=== PATIENT | female | born 1935 | race Caucasian/White ===

== ENCOUNTER 2016-06-23 13:11 | Inpatient (IN) | payer MEDICARE, BC, MEDICAID ==
[2016-06-23] MEDS ORDERED: Sodium Chloride 0.9% 10 ML Syringe FLUSH PRN ×2 (13:16→17:56)
--- NOTE | 2016-06-23 13:23 | EDM.PDOC ---
ED HISTORY OF PRESENT ILLNESS - General Stated Complaint: [facility] Time Seen by Provider: 06/23/16 13:15 Source: Reports: Patient, EMS, RN notes reviewed History Limitations: Reports: Physical impairment (Hearing and dementia) - History of Present Illness INITIAL COMMENTS - FREE TEXT/NARRATIVE: Difficult to obtain any history from her she does admit to being short of breath , EMS services were called to the memory care unit for difficulty breathing. When found by EMS services O2 saturation was 78% she did respond to albuterol nebulizer treatment and oxygen with O2 saturation in 90%. Due to the physical limitation could not obtain review of systems and HPI is limited, daughter called she is a full code - Related Data Allergies/ADRs: Allergies Allergy/AdvReac Type Severity Reaction Status Date / Time acetaminophen Allergy Hives Verified 06/23/16 14:00 cinnamon [Cinnamon] Allergy Hives Verified 06/23/16 14:00 codeine Allergy Hives Verified 06/23/16 14:00 iodine Allergy Hives Verified 06/23/16 14:00 meperidine HCl [From Demerol] Allergy Confusion Verified 06/23/16 14:00 morphine Allergy Confusion Verified 06/23/16 14:00 piroxicam [From Feldene] Allergy Hives Verified 06/23/16 14:00 prednisone Allergy Confusion Verified 06/23/16 14:00 vit-c Allergy Hives Uncoded 02/12/14 18:49 Home Meds: Home Meds Clopidogrel [Plavix] 75 mg PO DAILY 02/08/14 [History] Diltiazem HCl [Diltiazem 24Hr ER] 120 mg PO DAILY 02/08/14 [History] Ibuprofen [Advil Liqui-Gels] 200 mg PO Q4H PRN 02/08/14 [History] LORazepam [Ativan] 0.5 mg PO BID 02/08/14 [History] Levothyroxine [Synthroid] 88 mcg PO DAILY 02/08/14 [History] Nitroglycerin 0.4 mg SL ASDIRECTED 02/08/14 [History] risperiDONE [RisperiDAL ODT] 0.5 mg PO BID 02/08/14 [History] Ergocalciferol (Vitamin D2) [Vitamin D2] 1 tab PO DAILY 06/23/16 [History] LORazepam 1 tab PO Q6H 06/23/16 [History] LORazepam [Ativan] 1 tab PO BEDTIME 06/23/16 [History] Mirtazapine [Remeron] 0.5 tab PO BEDTIME 06/23/16 [History] Sennosides/Docusate Sodium [Sennalax-S] 1 tab PO ASDIRECTED 06/23/16 [History] Past Medical History Cardiovascular History: Reports: CAD, Heart Failure, Hypertension, Stents Respiratory History: Reports: SOB, Other (see below) (Aspiration) Gastrointestinal History: Reports: GERD Neurological History: Reports: Alzheimers disease Psychiatric History: Reports: Bipolar Endocrine/Metabolic History: Reports: Diabetes, type II, Hypothyroidism - Past Surgical History Cardiovascular Surgical History: Reports: Coronary artery stent GI Surgical History: Reports: Hernia, abdominal Musculoskeletal Surgical History: Reports: ORIF Social & Family History - Tobacco Use Smoking Status *Q: Never Smoker - Alcohol Use Days Per Week of Alcohol Use: 0 - Recreational Drug Use Recreational Drug Use: No ED ROS GENERAL - Review of Systems Review Of Systems: Unable To Obtain ED EXAM, GENERAL - Physical Exam Exam: See Below Free Text/Narrative:: General: Elderly female in moderate respiratory distress audible wheezing, alert and oriented x one HEENT: head is atraumatic normocephalic, eyes pupils equal round reactive to light, sclera clear no conjunctivitis appreciated. Ears blocked by Juan bilaterally. Nose no septal deviation, nares are clear, no blood present. Mouth mucosa is moist and pink no dry with white patches in the posterior pharynx and tongue, tongue is midline uvula is midline, . Neck: Supple no thyromegaly no tracheal deviation. Nodes: Cervical nodes subclavicular nodes nontender no palpable lymphadenopathy noted. Lungs: clear to auscultation bilaterally with symmetrical respirations, no adventitious noise appreciated. CV: Tachycardic rate and rhythm S1 and S2 appreciated no murmurs rubs or gallops noted. Abdomen: Soft, nontender, no palpable masses or organomegaly appreciated, no distention no guarding bowel sounds are present, . Neuro: Cranial nerves II through XII grossly intact Skin: Warm and dry, intact Extremities: No lower extremity edema appreciated, pedal pulse is +2. Course - Vital Signs Last Recorded V/S: Last Vital Signs Temp 96.2 F 06/23/16 13:22 Pulse 78 06/23/16 15:09 Resp 24 H 06/23/16 15:09 BP 198/88 H 06/23/16 15:09 Pulse Ox 94 L 06/23/16 15:09 - Orders/Labs/Meds Orders: Active Orders 24 hr Category Date Time Status Cardiac Monitoring [RC] .As Directed Care 06/23/16 13:16 Active EKG Documentation Completion [RC] ASDIRECTED Care 06/23/16 13:17 Active Oxygen Therapy [RC] ASDIRECTED Care 06/23/16 13:16 Active Peripheral IV Care [RC] . DIRECTED Care 06/23/16 13:16 Active Pulse Oximetry [RC] ASDIRECTED Care 06/23/16 13:16 Active Sodium Chloride 0.9% [Saline Flush] Med 06/23/16 13:16 Active 10 ml FLUSH ASDIRECTED PRN Peripheral IV Insertion Adult [OM.PC] Stat Oth 06/23/16 13:16 Ordered Saline Lock Insert [OM.PC] Stat Oth 06/23/16 13:16 Ordered EKG 12 Lead [EK] Stat Ther 06/23/16 13:17 Ordered Medication Orders Sodium Chloride (Saline Flush) 10 ml FLUSH ASDIRECTED PRN PRN Reason: Keep Vein Open Last Admin: 06/23/16 13:42 Dose: 10 ml Labs: Laboratory Tests 06/23/16 06/23/16 06/23/16 Range/Units 13:17 13:17 13:17 WBC 5.4 (4.5-11.0) K/uL RBC 4.05 (3.30-5.50) M/uL Hgb 13.1 (12.0-15.0) g/dL Hct 38.5 (36.0-48.0) % MCV 95 (80-98) fL MCH 32 H (27-31) pg MCHC 34 (32-36) % Plt Count 158 (150-400) K/uL Neut % (Auto) 66 (36-66) % Lymph % (Auto) 22 L (24-44) % Franklin % (Auto) 10 H (2-6) % Eos % (Auto) 2 (2-4) % Baso % (Auto) 1 (0-1) % PT 10.7 (9.5-12.0) sec INR 1.01 (0.80-1.20) APTT 24.5 L (27.0-36.0) sec Puncture Site ABG pH (7.350-7.450) ABG pCO2 (35.0-42.0) mmHg ABG pO2 (75.0-100.0) mmHg ABG HCO3 (22.0-26.0) mmol/L ABG Total CO2 (21.0-25.0) mmol/L ABG O2 Saturation (95.0-98.0) % ABG O2 Content (15.0-23.0) %vol ABG Base Excess mm/L ABG Hemoglobin (12.0-16.0) g/dL ABG Oxyhemoglobin % ABG Carboxyhemoglobin (0.0-1.6) % ABG Methemoglobin % Shay Test O2 Delivery Device Oxygen Flow Rate L Sodium 142 (140-148) mmol/L Potassium 4.1 (3.6-5.2) mmol/L Chloride 105 (100-108) mmol/L Carbon Dioxide 29 (21-32) mmol/L Anion Gap 8.0 (5.0-14.0) mmol/L BUN 14 (7-18) mg/dL Creatinine 1.0 (0.6-1.0) mg/dL Est Cr Clr Drug Dosing 30.62 mL/min Estimated GFR (MDRD) 53 L (>60) Glucose 193 H (74-106) mg/dL Lactic Acid (0.4-2.0) mmol/L Calcium 8.8 (8.5-10.1) mg/dL Total Bilirubin 0.4 (0.2-1.0) mg/dL AST 17 (15-37) U/L ALT 20 (12-78) U/L Alkaline Phosphatase 72 (46-116) U/L CK-MB (CK-2) 0.6 (0-3.6) mg/mL Troponin I 0.023 (0.000-0.056) ng/mL Hdh-O-Vpaofgvvqfv Pept 186 (5-450) pg/mL Total Protein 6.6 (6.4-8.2) g/dL Albumin 3.5 (3.4-5.0) g/dL Globulin 3.1 (2.3-3.5) g/dL Albumin/Globulin Ratio 1.1 L (1.2-2.2) Lipase 159 (73-393) U/L Urine Color Urine Appearance Urine pH (4.5-8.0) Ur Specific Maupin (1.008-1.030) Urine Protein (NEGATIVE) mg/dL Urine Glucose (UA) (NEGATIVE) mg/dL Urine Ketones (NEGATIVE) mg/dL Urine Occult Blood (NEGATIVE) Urine Nitrite (NEGATIVE) Urine Bilirubin (NEGATIVE) Urine Urobilinogen (NORMAL) mg/dL Ur Leukocyte Esterase (NEGATIVE) Urine RBC (0-5) Urine WBC (0-5) Ur Epithelial Cells Amorphous Sediment Urine Bacteria Urine Mucus 06/23/16 06/23/16 06/23/16 Range/Units 13:17 13:42 15:09 WBC (4.5-11.0) K/uL RBC (3.30-5.50) M/uL Hgb (12.0-15.0) g/dL Hct (36.0-48.0) % MCV (80-98) fL MCH (27-31) pg MCHC (32-36) % Plt Count (150-400) K/uL Neut % (Auto) (36-66) % Lymph % (Auto) (24-44) % Franklin % (Auto) (2-6) % Eos % (Auto) (2-4) % Baso % (Auto) (0-1) % PT (9.5-12.0) sec INR (0.80-1.20) APTT (27.0-36.0) sec Puncture Site Rt radial ABG pH 7.399 (7.350-7.450) ABG pCO2 45.0 H (35.0-42.0) mmHg ABG pO2 67.1 L (75.0-100.0) mmHg ABG HCO3 27.2 H (22.0-26.0) mmol/L ABG Total CO2 24.4 (21.0-25.0) mmol/L ABG O2 Saturation 92.7 L (95.0-98.0) % ABG O2 Content 16.7 (15.0-23.0) %vol ABG Base Excess 2.5 mm/L ABG Hemoglobin 13.0 (12.0-16.0) g/dL ABG Oxyhemoglobin 91.5 % ABG Carboxyhemoglobin 0.8 (0.0-1.6) % ABG Methemoglobin 0.5 % Shay Test Passed O2 Delivery Device Nasal cannula Oxygen Flow Rate 4 L Sodium (140-148) mmol/L Potassium (3.6-5.2) mmol/L Chloride (100-108) mmol/L Carbon Dioxide (21-32) mmol/L Anion Gap (5.0-14.0) mmol/L BUN (7-18) mg/dL Creatinine (0.6-1.0) mg/dL Est Cr Clr Drug Dosing mL/min Estimated GFR (MDRD) (>60) Glucose (74-106) mg/dL Lactic Acid 1.4 (0.4-2.0) mmol/L Calcium (8.5-10.1) mg/dL Total Bilirubin (0.2-1.0) mg/dL AST (15-37) U/L ALT (12-78) U/L Alkaline Phosphatase (46-116) U/L CK-MB (CK-2) (0-3.6) mg/mL Troponin I (0.000-0.056) ng/mL Jvs-M-Yxtcyckdavy Pept (5-450) pg/mL Total Protein (6.4-8.2) g/dL Albumin (3.4-5.0) g/dL Globulin (2.3-3.5) g/dL Albumin/Globulin Ratio (1.2-2.2) Lipase (73-393) U/L Urine Color Yellow Urine Appearance Clear Urine pH 7.0 (4.5-8.0) Ur Specific [place] 1.010 (1.008-1.030) Urine Protein Negative (NEGATIVE) mg/dL Urine Glucose (UA) Normal (NEGATIVE) mg/dL Urine Ketones Negative (NEGATIVE) mg/dL Urine Occult Blood Negative (NEGATIVE) Urine Nitrite Negative (NEGATIVE) Urine Bilirubin Negative (NEGATIVE) Urine Urobilinogen Normal (NORMAL) mg/dL Ur Leukocyte Esterase Negative (NEGATIVE) Urine RBC 0-5 (0-5) Urine WBC Not seen (0-5) Ur Epithelial Cells Not seen Amorphous Sediment Not seen Urine Bacteria Not seen Urine Mucus Not seen Meds: Medications Generic Name Dose Route Start Last Admin Trade Name Freq PRN Reason Stop Dose Admin Sodium Chloride 10 ml 06/23/16 13:16 06/23/16 13:42 Saline Flush FLUSH 10 ml ASDIRECTED PRN Administration Keep Vein Open Departure - Departure Time of Disposition: 15:54 Disposition: Admitted As Inpatient 64 Condition: poor Clinical Impression: SOB (shortness of breath), Hypoxemia - My Orders Last 24 Hours: My Active Orders 06/23/16 13:16 Cardiac Monitoring [RC] .As Directed Oxygen Therapy [RC] ASDIRECTED Peripheral IV Care [RC] . DIRECTED Pulse Oximetry [RC] ASDIRECTED Sodium Chloride 0.9% [Saline Flush] 10 ml FLUSH ASDIRECTED PRN Peripheral IV Insertion Adult [OM.PC] Stat Saline Lock Insert [OM.PC] Stat 06/23/16 13:17 EKG Documentation Completion [RC] ASDIRECTED EKG 12 Lead [EK] Stat - Assessment/Plan Last 24 Hours: My Active Orders 06/23/16 13:16 Cardiac Monitoring [RC] .As Directed Oxygen Therapy [RC] ASDIRECTED Peripheral IV Care [RC] . DIRECTED Pulse Oximetry [RC] ASDIRECTED Sodium Chloride 0.9% [Saline Flush] 10 ml FLUSH ASDIRECTED PRN Peripheral IV Insertion Adult [OM.PC] Stat Saline Lock Insert [OM.PC] Stat 06/23/16 13:17 EKG Documentation Completion [RC] ASDIRECTED EKG 12 Lead [EK] Stat Plan: Assessment Acuity = acute Site and laterality = hypoxia complicated patient with known Alzheimer's disease and history of aspiration pneumonia Etiology = suspicious for aspiration pneumonia Manifestations = hypoxia Location of injury = home Lab values = CBC within normal limits, INR within normal limits, pH 7.39 PCO2 40 5P O2 7.1 bicarbonate 27.2 CMP within normal limits urinalysis normal BNP normal limits 186 troponin normal at 0.023, EKG demonstrates normal sinus rhythm , chest x-ray shows no acute process Plan Call discussed case with hospitalist on-call he agreed to come to the ED and evaluate the patient for admission This note was dictated using [employer] voice recognition software please call with any questions.
--- NOTE | 2016-06-23 13:44 | CR ---
Chest 1V Frontal HISTORY: Chest Pain COMPARISON: 02/12/2014 FINDINGS: Lungs appear clear and normally aerated. There is no pneumothorax or pleural fluid. Heart size is wi thin normal limits. Atherosclerotic aorta is redemonstrated. Pulmonary vasculature is not engorged. There is soft tissue prominence in the right paratracheal region. This may represent atherosclerotic , tortuous innominate artery. Thyroid goiter could be considered. This is more prominent on today's exam compared with the prior study. Bony structures are diffusely osteopenic. Plate and screw fixati on proximal right humerus is stable. There is no obvious rib fracture or other acute rib abnormality . IMPRESSION: 1. No acute chest cardiopulmonary disease is identified. 2. Generalized osteopenia. Diffuse degenerative changes thoracic spine. 3. Stable old proximal right humeral fracture with plate and screw fixation. 4. Soft tissue fullness right paratracheal region is more prominent than on the exam of 02/12/2014. This could represent atherosclerotic, tortuous innominate artery or thyroid goiter. Other etiologies such as malignancy or lymphoma are felt to be less likely but not entirely excluded. If further wor kup is desired clinically, CT scan of the chest could be helpful to further evaluate.
[2016-06-23] MEDS ORDERED: LORazepam 2 MG/ML MDV IVPUSH ONE (16:50)
--- NOTE | 2016-06-23 17:23 | PCM.HP ---
H&P History of Present Illness - General Date of Service: 06/23/16 Admit Problem/Dx: Admission Diagnosis/Problem Admission Diagnosis/Problem Hypoxia Source of Information: Family, Old records, Provider, RN notes reviewed History Limitations: Reports: Altered mental status (Advanced dementia) - History of Present Illness Initial Comments - Free Text/Narative: This patient is an 81-year-old woman, who was admitted through the emergency room with hypoxia, thought secondary to aspiration. She has a known history of advanced dementia, over the past several months has become progressively more weak and confused. During that period of time is also began to have difficulty with recurrent episodes of aspiration, manifested as coughing and choking while eating. Her diet has been changed to a soft mechanical diet which does seem to have helped somewhat. Today at the [facility] was noted to be more short of breath and on evaluation found to be hypoxic with an oxygen saturation of 85% on room air. On evaluation in the emergency department she again was found to be hypoxic with a similar oxygen saturation. On initial assessment her respiratory rate was significantly elevated in the 30s. She's received supplemental oxygen in her respiratory status does seem to be stabilized over the past few hours in the emergency department. Chest x-ray showed no obvious infiltrate or evidence of pneumonia, white blood cell count is normal. This x- ray also documented a chronic mass in the chest it has enlarged slightly over the past 3 years. I discussed this with the patient's daughter and she does not want to consider further aggressive evaluation or intervention. Daughter would like the patient treated for pneumonia but no other aggressive interventions other than supplemental oxygen and IV fluids. A she herself is unable to contribute to the history because of advanced dementia. - Related Data Allergies/Adverse Reactions: Allergies Allergy/AdvReac Type Severity Reaction Status Date / Time acetaminophen Allergy Hives Verified 06/23/16 14:00 ascorbic acid Allergy Hives Verified 06/23/16 17:10 cinnamon [Cinnamon] Allergy Hives Verified 06/23/16 14:00 codeine Allergy Hives Verified 06/23/16 14:00 iodine Allergy Hives Verified 06/23/16 14:00 meperidine HCl [From Demerol] Allergy Confusion Verified 06/23/16 14:00 morphine Allergy Confusion Verified 06/23/16 14:00 piroxicam [From Feldene] Allergy Hives Verified 06/23/16 14:00 prednisone Allergy Confusion Verified 06/23/16 14:00 Home Medications: Home Meds Clopidogrel [Plavix] 75 mg PO DAILY 02/08/14 [History] Diltiazem HCl [Diltiazem 24Hr ER] 120 mg PO DAILY 02/08/14 [History] Ibuprofen [Advil Liqui-Gels] 200 mg PO Q4H PRN 02/08/14 [History] LORazepam [Ativan] 0.5 mg PO BID 02/08/14 [History] Levothyroxine [Synthroid] 88 mcg PO DAILY 02/08/14 [History] Nitroglycerin 0.4 mg SL ASDIRECTED 02/08/14 [History] risperiDONE [RisperiDAL ODT] 0.5 mg PO BID 02/08/14 [History] Ergocalciferol (Vitamin D2) [Vitamin D2] 1 tab PO DAILY 06/23/16 [History] LORazepam 1 tab PO Q6H 06/23/16 [History] LORazepam [Ativan] 1 tab PO BEDTIME 06/23/16 [History] Mirtazapine [Remeron] 0.5 tab PO BEDTIME 06/23/16 [History] Sennosides/Docusate Sodium [Sennalax-S] 1 tab PO ASDIRECTED 06/23/16 [History] Past Medical History Cardiovascular History: Reports: CAD, Heart Failure, Hypertension, Stents Respiratory History: Reports: SOB, Other (see below) (Aspiration) Gastrointestinal History: Reports: GERD Neurological History: Reports: Alzheimers disease Psychiatric History: Reports: Bipolar Endocrine/Metabolic History: Reports: Diabetes, type II, Hypothyroidism - Past Surgical History Cardiovascular Surgical History: Reports: Coronary artery stent GI Surgical History: Reports: Hernia, abdominal Musculoskeletal Surgical History: Reports: ORIF Social & Family History - Tobacco Use Smoking Status *Q: Never Smoker - Alcohol Use Days Per Week of Alcohol Use: 0 - Recreational Drug Use Recreational Drug Use: No H&P Review of Systems - Review of Systems: Review Of Systems: Unable To Obtain General: Reports: ROS unobtainable (Advanced dementia) Exam - Exam Exam: See Below - Vital Signs Vital Signs: Last Vital Signs Temp 96.2 F 06/23/16 13:22 Pulse 66 06/23/16 16:16 Resp 18 06/23/16 16:16 BP 200/87 H 04/04/17 16:16 Pulse Ox 95 06/23/16 16:16 Weight: 110 lb 7.225 oz - Exam Quality Assessment: supplemental oxygen, DVT prophylaxis General: alert, cooperative, mild distress HEENT: Conjunctiva clear, EOMI, Nares patent, Normal nasal septum, Posterior pharynx clear, Pupils equal, Pupils reactive. No: Hearing intact, Mucosa moist & pink Neck: supple, trachea midline, +2 carotid pulse wo bruit Lungs: Normal respiratory effort, Decreased breath sounds. No: Crackles, Rales , Rhonchi, Rub, Stridor, Wheezing Cardiovascular: regular rate, regular rhythm, normal S1, normal S2. No: irregular rhythm, bradycardia, tachycardia, systolic murmur, diastolic murmur Abdomen: normal bowel sounds, soft Back Exam: normal inspection, full range of motion, NT Extremities: normal inspection. No: clubbing Skin: warm, dry, intact Neuro Extensive - Mental Status: alert, disorientation to person, disorientation to place, disorientation to time, memory loss-remote events, memory loss-recent events. No: oriented x3, normal cognition, memory intact - Patient Data Lab Results last 24 hrs: Laboratory Results - last 24 hr 06/23/16 06/23/16 06/23/16 Range/Units 13:17 13:17 13:17 WBC 5.4 (4.5-11.0) K/uL RBC 4.05 (3.30-5.50) M/uL Hgb 13.1 (12.0-15.0) g/dL Hct 38.5 (36.0-48.0) % MCV 95 (80-98) fL MCH 32 H (27-31) pg MCHC 34 (32-36) % Plt Count 158 (150-400) K/uL Neut % (Auto) 66 (36-66) % Lymph % (Auto) 22 L (24-44) % [place] % (Auto) 10 H (2-6) % Eos % (Auto) 2 (2-4) % Baso % (Auto) 1 (0-1) % PT 10.7 (9.5-12.0) sec INR 1.01 (0.80-1.20) APTT 24.5 L (27.0-36.0) sec Puncture Site ABG pH (7.350-7.450) ABG pCO2 (35.0-42.0) mmHg ABG pO2 (75.0-100.0) mmHg ABG HCO3 (22.0-26.0) mmol/L ABG Total CO2 (21.0-25.0) mmol/L ABG O2 Saturation (95.0-98.0) % ABG O2 Content (15.0-23.0) %vol ABG Base Excess mm/L ABG Hemoglobin (12.0-16.0) g/dL ABG Oxyhemoglobin % ABG Carboxyhemoglobin (0.0-1.6) % ABG Methemoglobin % Shay Test O2 Delivery Device Oxygen Flow Rate L Sodium 142 (140-148) mmol/L Potassium 4.1 (3.6-5.2) mmol/L Chloride 105 (100-108) mmol/L Carbon Dioxide 29 (21-32) mmol/L Anion Gap 8.0 (5.0-14.0) mmol/L BUN 14 (7-18) mg/dL Creatinine 1.0 (0.6-1.0) mg/dL Est Cr Clr Drug Dosing 30.62 mL/min Estimated GFR (MDRD) 53 L (>60) Glucose 193 H (74-106) mg/dL Lactic Acid (0.4-2.0) mmol/L Calcium 8.8 (8.5-10.1) mg/dL Total Bilirubin 0.4 (0.2-1.0) mg/dL AST 17 (15-37) U/L ALT 20 (12-78) U/L Alkaline Phosphatase 72 (46-116) U/L CK-MB (CK-2) 0.6 (0-3.6) mg/mL Troponin I 0.023 (0.000-0.056) ng/mL Iur-T-Yckedipymgr Pept 186 (5-450) pg/mL Total Protein 6.6 (6.4-8.2) g/dL Albumin 3.5 (3.4-5.0) g/dL Globulin 3.1 (2.3-3.5) g/dL Albumin/Globulin Ratio 1.1 L (1.2-2.2) Lipase 159 (73-393) U/L Urine Color Urine Appearance Urine pH (4.5-8.0) Ur Specific [place] (1.008-1.030) Urine Protein (NEGATIVE) mg/dL Urine Glucose (UA) (NEGATIVE) mg/dL Urine Ketones (NEGATIVE) mg/dL Urine Occult Blood (NEGATIVE) Urine Nitrite (NEGATIVE) Urine Bilirubin (NEGATIVE) Urine Urobilinogen (NORMAL) mg/dL Ur Leukocyte Esterase (NEGATIVE) Urine RBC (0-5) Urine WBC (0-5) Ur Epithelial Cells Amorphous Sediment Urine Bacteria Urine Mucus 06/23/16 06/23/16 06/23/16 Range/Units 13:17 13:42 15:09 WBC (4.5-11.0) K/uL RBC (3.30-5.50) M/uL Hgb (12.0-15.0) g/dL Hct (36.0-48.0) % MCV (80-98) fL MCH (27-31) pg MCHC (32-36) % Plt Count (150-400) K/uL Neut % (Auto) (36-66) % Lymph % (Auto) (24-44) % [place] % (Auto) (2-6) % Eos % (Auto) (2-4) % Baso % (Auto) (0-1) % PT (9.5-12.0) sec INR (0.80-1.20) APTT (27.0-36.0) sec Puncture Site Rt radial ABG pH 7.399 (7.350-7.450) ABG pCO2 45.0 H (35.0-42.0) mmHg ABG pO2 67.1 L (75.0-100.0) mmHg ABG HCO3 27.2 H (22.0-26.0) mmol/L ABG Total CO2 24.4 (21.0-25.0) mmol/L ABG O2 Saturation 92.7 L (95.0-98.0) % ABG O2 Content 16.7 (15.0-23.0) %vol ABG Base Excess 2.5 mm/L ABG Hemoglobin 13.0 (12.0-16.0) g/dL ABG Oxyhemoglobin 91.5 % ABG Carboxyhemoglobin 0.8 (0.0-1.6) % ABG Methemoglobin 0.5 % Shay Test Passed O2 Delivery Device Nasal cannula Oxygen Flow Rate 4 L Sodium (140-148) mmol/L Potassium (3.6-5.2) mmol/L Chloride (100-108) mmol/L Carbon Dioxide (21-32) mmol/L Anion Gap (5.0-14.0) mmol/L BUN (7-18) mg/dL Creatinine (0.6-1.0) mg/dL Est Cr Clr Drug Dosing mL/min Estimated GFR (MDRD) (>60) Glucose (74-106) mg/dL Lactic Acid 1.4 (0.4-2.0) mmol/L Calcium (8.5-10.1) mg/dL Total Bilirubin (0.2-1.0) mg/dL AST (15-37) U/L ALT (12-78) U/L Alkaline Phosphatase (46-116) U/L CK-MB (CK-2) (0-3.6) mg/mL Troponin I (0.000-0.056) ng/mL Cbk-L-Vzygaiwnmtn Pept (5-450) pg/mL Total Protein (6.4-8.2) g/dL Albumin (3.4-5.0) g/dL Globulin (2.3-3.5) g/dL Albumin/Globulin Ratio (1.2-2.2) Lipase (73-393) U/L Urine Color Yellow Urine Appearance Clear Urine pH 7.0 (4.5-8.0) Ur Specific [place] 1.010 (1.008-1.030) Urine Protein Negative (NEGATIVE) mg/dL Urine Glucose (UA) Normal (NEGATIVE) mg/dL Urine Ketones Negative (NEGATIVE) mg/dL Urine Occult Blood Negative (NEGATIVE) Urine Nitrite Negative (NEGATIVE) Urine Bilirubin Negative (NEGATIVE) Urine Urobilinogen Normal (NORMAL) mg/dL Ur Leukocyte Esterase Negative (NEGATIVE) Urine RBC 0-5 (0-5) Urine WBC Not seen (0-5) Ur Epithelial Cells Not seen Amorphous Sediment Not seen Urine Bacteria Not seen Urine Mucus Not seen Result Diagrams: 06/23/16 13:17 06/23/16 13:17 *Q Meaningful Use (ADM) - VTE *Q VTE Criteria *Q: - VTE Risk Assess *Q Each Risk Factor Represents 1 Point: None Total Score 1 Point Risk Factors: 0 Each Risk Factor Represents 2 Points: None Total Score 2 Point Risk Factors: 0 Each Risk Factor Represents 3 Points: Age 75 Years or Greater Total Score 3 Point Risk Factors: 3 Each Risk Factor Represents 5 Points: None Total Score 5 Point Risk Factors: 0 Venous Thromboembolism Risk Factor Score *Q: 3 - Stroke *Q Stroke Criteria *Q: - AMI *Q AMI Criteria *Q: Problem List Initiated/Reviewed/Updated: Yes Orders Last 24hrs: Active Orders 24 hr Category Date Time Status Patient Status Manage Transfer [TRANSFER] Routine ADT 06/23/16 16:45 Active Cardiac Monitoring [RC] .As Directed Care 06/23/16 13:16 Active EKG Documentation Completion [RC] ASDIRECTED Care 06/23/16 13:17 Active Oxygen Therapy [RC] ASDIRECTED Care 06/23/16 13:16 Active Peripheral IV Care [RC] . DIRECTED Care 06/23/16 13:16 Active Pulse Oximetry [RC] ASDIRECTED Care 06/23/16 13:16 Active Sodium Chloride 0.9% [Saline Flush] Med 06/23/16 13:16 Active 10 ml FLUSH ASDIRECTED PRN Peripheral IV Insertion Adult [OM.PC] Stat Oth 06/23/16 13:16 Ordered Saline Lock Insert [OM.PC] Stat Oth 06/23/16 13:16 Ordered Resuscitation Status Routine Resus Stat 06/23/16 16:48 Ordered EKG 12 Lead [EK] Stat Ther 06/23/16 13:17 Ordered Medication Orders Sodium Chloride (Saline Flush) 10 ml FLUSH ASDIRECTED PRN PRN Reason: Keep Vein Open Last Admin: 06/23/16 13:42 Dose: 10 ml Assessment/Plan Comment:: ASSESSMENT AND PLAN HYPOXIC RESPIRATORY FAILURE-evidence of probable aspiration, food particles noted within the patient's mouth when she arrived in the emergency department. She does advanced dementia and a recent history over the past few months of aspiration while eating. She was found to be acutely short of breath today and on assessment of oxygen saturations significantly hypoxic. White blood cell count is normal and chest x-ray shows no obvious infiltrates. Hypoxia has improved with supplemental oxygen. Patient's daughter is present feels that it' s consistent with the patient's previously expressed wishes that we treat with antibiotics and IV fluids as well as supplemental oxygen but no further aggressive interventions or evaluation. Did explain to the daughter that typically we would proceed with CT scan of the chest with PE protocol to rule out pulmonary embolism and look for other evidence of pulmonary disease. -Supplemental oxygen as needed -Blood cultures pending -Nebulized albuterol as needed -Hold on evaluation with CT scan, as directed by family -Repeat chest x-ray in a.m. after hydration -Unasyn 1.5 g IV every 6 hours -Soft mechanical diet and nectar thickened liquids PALLIATIVE CARE-family has directed limited care, to include only antibiotics, IV fluids, and supplemental oxygen. They do not want to proceed with further aggressive evaluation or interventions. -Comfort measures if the patient worsens -Hold on further aggressive interventions including CT scan of the chest -DNR/DNI -Consider hospice care in the near future ADVANCED DEMENTIA-history of episodic agitation -Continue outpatient medical regimen MAINTENANCE ISSUES -DVT prophylaxis; Lovenox 40 mg subcutaneous daily -GI prophylaxis; not indicated -Ley catheter; not indicated -Nutrition; soft mechanical diet and nectar thickened liquids -Nicotine dependence; not required CODE STATUS-DNR/DNI ADMISSION STATUS-patient will be admitted to inpatient status, expect at least a 2 night hospital stay for evaluation and management of problems as outlined above. At the time of this admission I do not reasonably expected evaluation and management of this problem will require more than a 96 hour hospital stay. DISPOSITION-anticipate discharge back to [facility] after her hospital stay. Consider hospice admission in the near future PRIMARY CARE PROVIDER-
[2016-06-23] MEDS ORDERED: Albuterol 0.083% 2.5 MG/3 ML Neb Soln NEB PRN (17:56)
[2016-06-23] MEDS ORDERED: Docusate Sodium 100 MG Cap PO PRN (17:56)
[2016-06-23] MEDS ORDERED: Magnesium Hydroxide 400 MG/5 ML Susp 30 ML Cup PO PRN (17:56)
[2016-06-23] MEDS ORDERED: Ondansetron 4 MG/2 ML SDV IV PRN (17:56)
[2016-06-23] MEDS ORDERED: Polyethylene Glycol 3350 Powder 17 GM Packet PO PRN (17:56)
[2016-06-23] MEDS ORDERED: Acetaminophen 325 MG Tab PO PRN (17:56)
[2016-06-23] MEDS ORDERED: Enoxaparin 40 MG/0.4 ML Syringe SUBCUT SCH (17:56)
[2016-06-23] MEDS: Sodium Chloride 0.9% 1,000 ML IV SCH (18:40)
[2016-06-23] MEDS ORDERED: RISPERIDONE 0.5 MG PO SCH (21:00)
[2016-06-23] MEDS ORDERED: risperiDONE 0.25 MG Tab ONE (21:33)
[2016-06-23] MEDS: LORazepam 0.5 MG Tab PO SCH ×2 (21:45)
[2016-06-23] MEDS: Mirtazapine 15 MG Tab PO SCH (21:45)
[2016-06-23] MEDS: Ampicillin/Sulbactam Na 1.5 GM in Sodium Chloride 0.9% 50 ML IV SCH (21:47)
[2016-06-24] MEDS: Sodium Chloride 0.9% 1,000 ML IV SCH (03:15)
[2016-06-24] MEDS: Ampicillin/Sulbactam Na 1.5 GM in Sodium Chloride 0.9% 50 ML IV SCH ×4 (03:54→21:20)
[2016-06-24] MEDS: Levothyroxine 88 MCG Tab PO SCH (08:15)
[2016-06-24] MEDS: Diltiazem 120 MG Cap.CD PO SCH (08:26)
[2016-06-24] MEDS: Clopidogrel 75 MG Tab PO SCH (08:27)
[2016-06-24] MEDS: LORazepam 0.5 MG Tab PO SCH ×2 (08:30→20:25)
[2016-06-24] MEDS: risperiDONE 0.5 MG Tab PO SCH ×2 (08:39→20:25)
[2016-06-24] MEDS ORDERED: Levothyroxine 88 MCG Tab PO SCH (09:00)
--- NOTE | 2016-06-24 09:00 | CR ---
Chest 1V Frontal HISTORY: Probable aspiration, followup after hydration COMPARISON: 06/23/2016 FINDINGS: Portable chest, 0514 hours. There are mild infiltrates or atelectasis retrocardiac region left lower lobe. Mild linear atelectas is is noted adjacent to the right hilum. Remainder the chest is clear. There is no pneumothorax. Arin y small amount of pleural thickening or fluid is noted on the left. Heart size is within normal limi ts and stable. Atherosclerotic aorta is redemonstrated. There is no hilar or mediastinal abnormality . Old right humerus fracture with plate and screw fixation is stable. There is generalized osteopeni a. IMPRESSION: Bilateral infiltrates versus atelectasis left lower lobe. Aspiration pneumonia could be considered. Recommend clinical correlation and follow-up. There is probable mild linear atelectasis right mid chest.
--- NOTE | 2016-06-24 09:28 | PCM.PN ---
- General Info Date of Service: 06/24/16 Functional Status: Reports: pain controlled, tolerating diet, urinating - Review of Systems General: Reports: Fever, Weakness. Denies: Chills Pulmonary: Reports: shortness of breath, cough, wheezing. Denies: pleuritic chest pain, sputum, hemoptysis Cardiovascular: Reports: Dyspnea on Exertion. Denies: Chest Pain, Palpitations , Orthopnea, PND, Edema Gastrointestinal: Reports: No symptoms Systems Review Comment:: This patient has developed elevated white count and low-grade temperature elevation since admission. Chest x-ray obtained this morning does show evidence of a left lung infiltrate consistent with pneumonia. Vital signs have otherwise been stable. - Patient Data Vitals - most recent: Last Vital Signs Temp 99.1 F 06/24/16 08:00 Pulse 73 06/24/16 08:26 Resp 18 06/24/16 08:00 BP 156/64 H 06/24/16 08:26 Pulse Ox 96 06/24/16 08:00 Weight - most recent: 119 lb 0.794 oz Lab Results last 24 hrs: Laboratory Results - last 24 hr 06/24/16 06/24/16 Range/Units 05:23 05:23 WBC 13.3 H (4.5-11.0) K/uL RBC 3.49 (3.30-5.50) M/uL Hgb 11.3 L (12.0-15.0) g/dL Hct 33.6 L (36.0-48.0) % MCV 96 (80-98) fL MCH 32 H (27-31) pg MCHC 34 (32-36) % Plt Count 137 L (150-400) K/uL Neut % (Auto) 80 H (36-66) % Lymph % (Auto) 9 L (24-44) % [place] % (Auto) 10 H (2-6) % Eos % (Auto) 1 L (2-4) % Baso % (Auto) 0 (0-1) % Sodium 139 L (140-148) mmol/L Potassium 4.2 (3.6-5.2) mmol/L Chloride 105 (100-108) mmol/L Carbon Dioxide 28 (21-32) mmol/L Anion Gap 10.2 (5.0-14.0) mmol/L BUN 13 (7-18) mg/dL Creatinine 1.0 (0.6-1.0) mg/dL Est Cr Clr Drug Dosing 30.62 mL/min Estimated GFR (MDRD) 53 L (>60) Glucose 95 (74-106) mg/dL Calcium 7.7 L (8.5-10.1) mg/dL Med Orders - Current: Current Medications Acetaminophen (Tylenol) 650 mg PO Q4H PRN PRN Reason: Pain (Mild 1-3)/fever Albuterol (Proventil Neb Soln) 2.5 mg NEB Q4H PRN PRN Reason: Shortness Of Breath/wheezing Clopidogrel Bisulfate (Plavix) 75 mg PO DAILY [facility] Last Admin: 06/24/16 08:27 Dose: 75 mg Diltiazem HCl (Cardizem Cd) 120 mg PO DAILY [facility] Last Admin: 06/24/16 08:26 Dose: 120 mg Docusate Sodium (Colace) 100 mg PO BID PRN PRN Reason: Constipation Ampicillin Sodium/Sulbactam (Sodium 1.5 gm/ Sodium Chloride) 50 mls @ 100 mls/ hr IV Q6HR [facility] Last Admin: 06/24/16 03:54 Dose: 100 mls/hr Levothyroxine Sodium (Synthroid) 88 mcg PO ACBREAKFAST [facility] Last Admin: 06/24/16 08:15 Dose: 88 mcg Lorazepam (Ativan) 0.5 mg PO BID [facility] Last Admin: 06/24/16 08:30 Dose: 0.5 mg Lorazepam (Ativan) 0.5 mg PO BEDTIME [facility] Last Admin: 06/23/16 21:45 Dose: 0.5 mg Magnesium Hydroxide (Milk Of Magnesia) 30 ml PO Q12H PRN PRN Reason: Constipation Mirtazapine (Remeron) 7.5 mg PO BEDTIME [facility] Last Admin: 06/23/16 21:45 Dose: 7.5 mg Ondansetron HCl (Zofran) 4 mg IV Q4H PRN PRN Reason: Nausea/Vomiting Polyethylene Glycol (Miralax) 17 gm PO DAILY PRN PRN Reason: Constipation Risperidone (Risperidal) 0.5 mg PO BID [facility] Last Admin: 06/24/16 08:39 Dose: 0.5 mg Sodium Chloride (Saline Flush) 10 ml FLUSH ASDIRECTED PRN PRN Reason: Keep Vein Open Discontinued Medications Enoxaparin Sodium (Lovenox) 40 mg SUBCUT DAILY [facility] Sodium Chloride (Normal Saline) 1,000 mls @ 125 mls/hr IV ASDIRECTED NASIR Last Admin: 06/24/16 03:15 Dose: 125 mls/hr Levothyroxine Sodium (Synthroid) 88 mcg PO DAILY [facility] Lorazepam (Ativan) 1 mg IVPUSH ONETIME ONE Stop: 06/23/16 16:51 Last Admin: 06/23/16 16:59 Dose: 1 mg Risperidone (Risperidal Odt) 0.5 mg PO BID NASIR Last Admin: 06/23/16 21:46 Dose: 0.5 mg Risperidone (Risperidal) Confirm Administered Dose 0.5 mg .ROUTE .STK-MED ONE Stop: 06/23/16 21:34 Last Admin: 06/23/16 21:46 Dose: Not Given Sodium Chloride (Saline Flush) 10 ml FLUSH ASDIRECTED PRN PRN Reason: Keep Vein Open Last Admin: 06/23/16 13:42 Dose: 10 ml - Exam Quality Assessment: supplemental oxygen, DVT prophylaxis General: alert, cooperative, no acute distress Lungs: Normal respiratory effort, Rhonchi, Wheezing Cardiovascular: Regular Rate, Regular Rhythm, No Murmurs Abdomen: bowel sounds present, soft, no tenderness, no distension Extremities: no edema Skin: warm, dry, intact - Problem List Review Problem List Initiated/Reviewed/Updated: Yes - My Orders Last 24 Hours: My Active Orders 06/23/16 16:48 Resuscitation Status Routine 06/23/16 17:56 Patient Status [ADT] Routine Intake and Output [RC] QSHIFT Notify Provider Vital Signs [RC] ASDIRECTED Oxygen Therapy [RC] PRN Peripheral IV Care [RC] . DIRECTED RT Aerosol Therapy [RC] ASDIRECTED Up With Assistance [RC] ASDIRECTED VTE/DVT Education [RC] Per Unit Routine Vital Signs [RC] Q4H CULTURE BLOOD [BC] Urgent Acetaminophen [Tylenol] 650 mg PO Q4H PRN Albuterol [Proventil Neb Soln] 2.5 mg NEB Q4H PRN Docusate Sodium [Colace] 100 mg PO BID PRN Magnesium Hydroxide [Milk of Magnesia] 30 ml PO Q12H PRN Ondansetron [Zofran] 4 mg IV Q4H PRN Polyethylene Glycol 3350 [MiraLAX] 17 gm PO DAILY PRN Sodium Chloride 0.9% [Saline Flush] 10 ml FLUSH ASDIRECTED PRN Blood Culture x2 Reflex Set [OM.PC] Stat Peripheral IV Insertion Adult [OM.PC] Routine 06/23/16 18:09 CULTURE BLOOD [BC] Urgent 06/23/16 18:21 Sequential Compression Device [OM.PC] Routine 06/23/16 22:00 Ampicillin/Sulbactam Na [Unasyn] 1.5 gm Sodium Chloride 0.9% [Normal Saline] 50 ml IV Q6HR 06/23/16 Dinner Mechanical Soft Diet [DIET] Thickened Liquids [DIET] 06/24/16 07:16 risperiDONE [RisperiDAL] 0.5 mg PO BID 06/24/16 07:30 Levothyroxine [Synthroid] 88 mcg PO ACBREAKFAST 06/24/16 09:23 Convert IV to Saline Lock [OM.PC] Routine 06/25/16 05:00 BASIC METABOLIC PANEL,BMP [CHEM] Timed CBC WITH AUTO DIFF [HEME] Timed - Plan Plan:: ASSESSMENT AND PLAN ASPIRATION PNEUMONIA-since admission she has developed low-grade temperature elevation as well as elevation in white blood cell count. Chest x-ray from this morning does document a left lung infiltrate. Discussed aspiration which daughter who is present, will continue current dietary modifications including soft mechanical diet and nectar thick liquids. Discussed possible speech therapy evaluation of swallowing, daughter does not want to pursue this intervention at the present time. -Supplemental oxygen as needed -Blood cultures pending -Nebulized albuterol as needed -Hold on evaluation with CT scan, as directed by family -Unasyn 1.5 g IV every 6 hours -Soft mechanical diet and nectar thickened liquids HYPOXIC RESPIRATORY FAILURE -Management as above PALLIATIVE CARE-family has directed limited care, to include only antibiotics, IV fluids, and supplemental oxygen. They do not want to proceed with further aggressive evaluation or interventions. -Comfort measures if the patient worsens -Hold on further aggressive interventions including CT scan of the chest -DNR/DNI ADVANCED DEMENTIA-history of episodic agitation -Continue outpatient medical regimen MAINTENANCE ISSUES -DVT prophylaxis; Lovenox 40 mg subcutaneous daily -GI prophylaxis; not indicated -Ley catheter; not indicated -Nutrition; soft mechanical diet and nectar thickened liquids -Nicotine dependence; not required CODE STATUS-DNR/DNI ADMISSION STATUS-patient will be admitted to inpatient status, expect at least a 2 night hospital stay for evaluation and management of problems as outlined above. At the time of this admission I do not reasonably expected evaluation and management of this problem will require more than a 96 hour hospital stay. DISPOSITION-anticipate discharge back to [facility] after her hospital stay. Consider hospice admission in the near future PRIMARY CARE PROVIDER-
[2016-06-24] MEDS ORDERED: LORazepam 0.5 MG Tab PO PRN (13:33)
[2016-06-24] MEDS: Mirtazapine 15 MG Tab PO SCH (20:25)
[2016-06-25] MEDS: Ampicillin/Sulbactam Na 1.5 GM in Sodium Chloride 0.9% 50 ML IV SCH ×2 (04:34→10:29)
[2016-06-25] MEDS: Levothyroxine 88 MCG Tab PO SCH (08:00)
[2016-06-25] MEDS: risperiDONE 0.5 MG Tab PO SCH (08:51)
[2016-06-25] MEDS: Diltiazem 120 MG Cap.CD PO SCH (08:52)
[2016-06-25] MEDS: Clopidogrel 75 MG Tab PO SCH (08:53)
[2016-06-25] MEDS ORDERED: LORazepam 0.5 MG Tab PO SCH (09:00)
[2016-06-25 10:48] VITALS: BP 135/61
--- NOTE | 2016-06-25 12:54 | PCM.DCSUM1 ---
Discharge Summary - Hospital Course Brief History: Ms. Medina is an 81-year-old woman was admitted through the emergency department with shortness of breath and cough secondary to aspiration pneumonia of the left lung. - Discharge Data Discharge Date: 06/25/16 Discharge Disposition: Home, Self-Care 01 Condition: Fair - Discharge Diagnosis/Problem(s) (1) Pneumonia SNOMED Code(s): 608781697 ICD Code: J18.9 - PNEUMONIA, UNSPECIFIED ORGANISM Status: Acute Current Visit: Yes Qualifiers: Pneumonia type: aspiration pneumonia Laterality: left Lung location: lower lobe of lung (2) Palliative care patient SNOMED Code(s): 537469869 ICD Code: Z51.5 - ENCOUNTER FOR PALLIATIVE CARE Status: Acute Current Visit: Yes (3) Hypoxemia SNOMED Code(s): 449547010 ICD Code: R09.02 - HYPOXEMIA Status: Acute Current Visit: Yes (4) Dementia SNOMED Code(s): 31574501 ICD Code: F03.90 - UNSPECIFIED DEMENTIA WITHOUT BEHAVIORAL DISTURBANCE Status: Chronic Current Visit: No - Patient Summary/Data Hospital Course: Ms. Medina is an 81-year-old woman who lives at the [facility] because of progressive dementia. Family and staff noted that deterioration over the past several months with progressive weakness and increasing cognitive decline. During that period time is also developed difficulty with eating and swallowing with intermittent episodes of aspiration. On the day of admission was noted to be short of breath and had developed a cough after her new meal. On evaluation emergency room department she was found to be hypoxic and was given supplemental oxygen with improvement in oxygen saturation. White blood cell count was normal and chest x-ray showed no obvious infiltrates. Was felt highly likely since is it developed after her meal that she'd experienced an episode of aspiration. She was continued on supplemental oxygen, given nebulizer therapy, IV fluids, and started on IV antibiotic therapy with Unasyn. The following morning she was noted to have an elevation in her white blood cell count and infiltrate in the left lower lobe on chest x-ray. She remained afebrile throughout her hospital stay and on the day of discharge white blood cell count had improved. I did recommend to the patient's daughter that we keep her for another day or 2 of IV antibiotics but the daughter refused and would like to get her back to the alf. She will be discharged on oral antibiotic therapy with Augmentin to complete a ten-day course of antibiotics. Patient has significant dementia and was unable to provide significant information or directions concerning her wishes for ongoing care. She will be discharged on a soft mechanical diet with nectar thickened liquids. We discussed further evaluation during hospital stay including CT scan of the chest as well as speech therapy for swallowing assessment. Patient's daughter did not feel these interventions were warranted and requested that we not proceed with further aggressive evaluation. She would like her treated with antibiotics in the future but, otherwise would like to take it daily give care approach to ongoing management. She will be on continuous oxygen after discharge and activity will be as tolerated. We'll request physical therapy assessment in followup because of weakness. - Patient Instructions Diet: Mechanical Soft Diet, Other: [place] thickened liquids Activity: As Tolerated Other/Special Instructions: O2 2lit/min via [place], PT daily for weakness - Discharge Plan Prescriptions/Med Rec: Amoxicillin/Potassium Clav [Augmentin 875-125 Tablet] 1 each PO BID #16 tablet Home Medications: Home Meds Clopidogrel [Plavix] 75 mg PO DAILY 02/08/14 [History] Diltiazem HCl [Diltiazem 24Hr ER] 120 mg PO DAILY 02/08/14 [History] Ibuprofen [Advil Liqui-Gels] 200 mg PO Q4H PRN 02/08/14 [History] LORazepam [Ativan] 0.5 mg PO BID 02/08/14 [History] Levothyroxine [Synthroid] 88 mcg PO DAILY 02/08/14 [History] Nitroglycerin 0.4 mg SL ASDIRECTED 02/08/14 [History] risperiDONE [RisperiDAL ODT] 0.5 mg PO BID 02/08/14 [History] Ergocalciferol (Vitamin D2) [Vitamin D2] 1 tab PO DAILY 06/23/16 [History] LORazepam 1 tab PO Q6H PRN 06/23/16 [History] LORazepam [Ativan] 1 tab PO BEDTIME 06/23/16 [History] Mirtazapine [Remeron] 0.5 tab PO BEDTIME 06/23/16 [History] Sennosides/Docusate Sodium [Sennalax-S] 1 tab PO ASDIRECTED 06/23/16 [History] Amoxicillin/Potassium Clav [Augmentin 875-125 Tablet] 1 each PO BID #16 tablet 06/25/16 [Rx] Referrals: PCP,None [Primary Care Provider] - - Patient Data Vitals - Most Recent: Last Vital Signs Temp 99.0 F 06/25/16 10:45 Pulse 76 06/25/16 10:45 Resp 18 06/25/16 10:45 BP 135/61 06/25/16 10:45 Pulse Ox 96 06/25/16 10:45 Weight - Most Recent: 119 lb 0.794 oz I&O - Last 24 hours: Intake & Output 06/24/16 06/25/16 06/25/16 22:59 06:59 14:59 Intake Total 240 100 360 Output Total 400 Balance 240 -300 360 Lab Results - Last 24 hrs: Laboratory Results - last 24 hr 06/25/16 06/25/16 Range/Units 05:00 05:00 WBC 10.6 (4.5-11.0) K/uL RBC 3.42 (3.30-5.50) M/uL Hgb 11.3 L (12.0-15.0) g/dL Hct 33.5 L (36.0-48.0) % MCV 98 (80-98) fL MCH 33 H (27-31) pg MCHC 34 (32-36) % Plt Count 128 L (150-400) K/uL Neut % (Auto) 75 H (36-66) % Lymph % (Auto) 10 L (24-44) % [place] % (Auto) 11 H (2-6) % Eos % (Auto) 4 (2-4) % Baso % (Auto) 1 (0-1) % Sodium 139 L (140-148) mmol/L Potassium 4.5 (3.6-5.2) mmol/L Chloride 108 (100-108) mmol/L Carbon Dioxide 29 (21-32) mmol/L Anion Gap 6.5 (5.0-14.0) mmol/L BUN 10 (7-18) mg/dL Creatinine 0.8 (0.6-1.0) mg/dL Est Cr Clr Drug Dosing 38.27 mL/min Estimated GFR (MDRD) > 60 (>60) Glucose 98 (74-106) mg/dL Calcium 7.9 L (8.5-10.1) mg/dL BENEDICTO Results - Last 24 hrs: Microbiology 06/23/16 18:09 Aerobic Blood Culture - Preliminary Blood - Venous NO GROWTH AFTER 1 DAY Anaerobic Blood Culture - Preliminary NO GROWTH AFTER 1 DAY 06/23/16 17:56 Aerobic Blood Culture - Preliminary Blood - Venous - Lab Draw NO GROWTH AFTER 1 DAY Anaerobic Blood Culture - Preliminary NO GROWTH AFTER 1 DAY Med Orders - Current: Current Medications Acetaminophen (Tylenol) 650 mg PO Q4H PRN PRN Reason: Pain (Mild 1-3)/fever Last Admin: 06/24/16 15:32 Dose: 650 mg Albuterol (Proventil Neb Soln) 2.5 mg NEB Q4H PRN PRN Reason: Shortness Of Breath/wheezing Clopidogrel Bisulfate (Plavix) 75 mg PO DAILY [facility] Last Admin: 06/25/16 08:53 Dose: 75 mg Diltiazem HCl (Cardizem Cd) 120 mg PO DAILY [facility] Last Admin: 06/25/16 08:52 Dose: 120 mg Docusate Sodium (Colace) 100 mg PO BID PRN PRN Reason: Constipation Ampicillin Sodium/Sulbactam (Sodium 1.5 gm/ Sodium Chloride) 50 mls @ 100 mls/ hr IV Q6HR [facility] Last Admin: 06/25/16 10:29 Dose: 100 mls/hr Levothyroxine Sodium (Synthroid) 88 mcg PO ACBREAKFAST [facility] Last Admin: 06/25/16 08:00 Dose: 88 mcg Lorazepam (Ativan) 0.5 mg PO BEDTIME [facility] Last Admin: 06/24/16 20:25 Dose: 0.5 mg Lorazepam (Ativan) 0.25 mg PO DAILY [facility] Last Admin: 06/25/16 09:05 Dose: 0.25 mg Lorazepam (Ativan) 0.5 mg PO Q6H PRN PRN Reason: Agitation Last Admin: 06/24/16 15:32 Dose: 0.5 mg Magnesium Hydroxide (Milk Of Magnesia) 30 ml PO Q12H PRN PRN Reason: Constipation Mirtazapine (Remeron) 7.5 mg PO BEDTIME [facility] Last Admin: 06/24/16 20:25 Dose: 7.5 mg Ondansetron HCl (Zofran) 4 mg IV Q4H PRN PRN Reason: Nausea/Vomiting Polyethylene Glycol (Miralax) 17 gm PO DAILY PRN PRN Reason: Constipation Risperidone (Risperidal) 0.5 mg PO BID [facility] Last Admin: 06/25/16 08:51 Dose: 0.5 mg Sodium Chloride (Saline Flush) 10 ml FLUSH ASDIRECTED PRN PRN Reason: Keep Vein Open Discontinued Medications Enoxaparin Sodium (Lovenox) 40 mg SUBCUT DAILY [facility] Sodium Chloride (Normal Saline) 1,000 mls @ 125 mls/hr IV ASDIRECTED [facility] Last Admin: 06/24/16 03:15 Dose: 125 mls/hr Levothyroxine Sodium (Synthroid) 88 mcg PO DAILY [facility] Lorazepam (Ativan) 1 mg IVPUSH ONETIME ONE Stop: 06/23/16 16:51 Last Admin: 06/23/16 16:59 Dose: 1 mg Lorazepam (Ativan) 0.5 mg PO BID [facility] Last Admin: 06/24/16 08:30 Dose: 0.5 mg Risperidone (Risperidal Odt) 0.5 mg PO BID [facility] Last Admin: 06/23/16 21:46 Dose: 0.5 mg Risperidone (Risperidal) Confirm Administered Dose 0.5 mg .ROUTE .STK-MED ONE Stop: 06/23/16 21:34 Last Admin: 06/23/16 21:46 Dose: Not Given Sodium Chloride (Saline Flush) 10 ml FLUSH ASDIRECTED PRN PRN Reason: Keep Vein Open Last Admin: 06/23/16 13:42 Dose: 10 ml *Q Meaningful Use (DIS) - VTE *Q VTE Criteria *Q: - Stroke *Q Stroke Criteria *Q: - AMI *Q AMI Criteria *Q:
== END 2016-06-25 13:50 | disposition home or self-care (01) | DRG 177 ==
LOC: JP.ED 13:11 → JP.ICU 16:45 → JP.MS 06-24 18:12
PROVIDERS: ADMIT Hospitalist; ATTEND Hospitalist
DX: J69.0 Pneumonitis due to inhalation of food and vomit (principal); J96.01 Acute respiratory failure with hypoxia; I10 Essential (primary) hypertension; G30.9 Alzheimer's disease, unspecified; F02.80 Dementia in other diseases classified elsewhere, unspecified severity, without behavioral disturbance, psychotic disturbance, mood disturbance, and anxiety; E03.9 Hypothyroidism, unspecified; Z66 Do not resuscitate; R93.8 Abnormal findings on diagnostic imaging of other specified body structures; Z99.81 Dependence on supplemental oxygen; Z51.5 Encounter for palliative care; I25.10 Atherosclerotic heart disease of native coronary artery without angina pectoris; Z95.5 Presence of coronary angioplasty implant and graft; Z79.2 Long term (current) use of antibiotics; R45.1 Restlessness and agitation; Z88.6 Allergy status to analgesic agent; Z88.5 Allergy status to narcotic agent; Z88.8 Allergy status to other drugs, medicaments and biological substances; Z91.018 Allergy to other foods; F31.9 Bipolar disorder, unspecified; R06.02 Shortness of breath
CPT/HCPCS: 36415; 36600; 71010 ×2; 80053; 81001; 82553; 82803; 83605; 83690; 83880; 84484; 85025; 85610; 85730; 93005; 93010; 99285 ×2; J7050; 80048; 87040; 96374; A9270-GY; J0287; J2060; J7040